=== PATIENT | female | born 1955 | race Two or more races ===

== ENCOUNTER → 2021-09-12 | Emergency (ER) | payer OTHER ==
[~2021-09-12] VITALS: Ht 177.8 cm; Wt 99.8 kg
[~2021-09-12] MED LIST: GLIMEPIRIDE4 M1 PO; LOSARTAN-HCTZ1 EACH PO
== END | disposition left against medical advice (07) ==
LOC: ER 09:28
DX: Z53.21 Procedure and treatment not carried out due to patient leaving prior to being seen by health care provider (principal)